=== PATIENT | female | born 1945 | race Caucasian/White ===

== ENCOUNTER 2017-05-15 21:46 | Emergency (ER) | payer MEDICARE, MEDICAID ==
[~2017-05-15] VITALS: Ht 157.5 cm; Wt 90.9 kg
[2017-05-15] MEDS ORDERED: ONDANSETRON ODT 4 MG PO ONE (22:30)
[2017-05-15] MEDS ORDERED: OXYcodone/APAP 10/325MG TABLET PO ONE (22:30)
[2017-05-15] MEDS ORDERED: KETOROLAC 30 MG/1 ML IM ONE (22:30)
[2017-05-15] MEDS ORDERED: ONDANSETRON ODT 4 MG ONE (22:35)
[2017-05-15] MEDS ORDERED: OXYcodone/APAP 5/325MG TABLET ONE (22:35)
[2017-05-15] MEDS ORDERED: KETOROLAC 30 MG/1 ML ONE (22:35)
[2017-05-16 01:42] VITALS: BP 148/89
== END 2017-05-16 02:21 | disposition left against medical advice (07) ==
LOC: ED 23:59
DX: S32.424A Nondisplaced fracture of posterior wall of right acetabulum, initial encounter for closed fracture (principal); S50.312A Abrasion of left elbow, initial encounter; I10 Essential (primary) hypertension; W01.0XXA Fall on same level from slipping, tripping and stumbling without subsequent striking against object, initial encounter; Y93.89 Activity, other specified; Y92.59 Other trade areas as the place of occurrence of the external cause; Y99.8 Other external cause status
CPT/HCPCS: 72110; 73502; 73552; 73700; 96372; 99284; J1885; J7512; Q0162